=== PATIENT | female | born 1995 | race African-American/Black ===

== ENCOUNTER 2022-11-16 18:19 | Emergency (ER) | payer MEDICAID ==
[~2022-11-16] VITALS: Ht 152.4 cm; Wt 80.0 kg
[2022-11-16 18:28] VITALS: BP 133/80
[2022-11-16] MEDS ORDERED: IBUP-2029 MT (20:14)
== END 2022-11-16 21:35 | disposition home or self-care (01) ==
LOC: ER 18:19
DX: S60.221A Contusion of right hand, initial encounter (principal); X58.XXXA Exposure to other specified factors, initial encounter; Y93.89 Activity, other specified; Y92.89 Other specified places as the place of occurrence of the external cause; Y99.8 Other external cause status
CPT/HCPCS: 73130; 99283